=== PATIENT | female | born 1980 | race Caucasian/White ===

== ENCOUNTER 2016-10-29 22:35 | Outpatient (CLI) | payer OTHER, MEDICAID ==
[~2016-10-29] VITALS: Ht 160 cm; Wt 79.1 kg
[2016-10-29 23:45] VITALS: BP 117/71; PULSE 88
[2016-10-30] MEDS ORDERED: PRENATAL1 TA7 PO (00:26)
== END 2016-10-30 00:32 | disposition home or self-care (01) ==
LOC: LDRO 22:35
DX: Z03.71 Encounter for suspected problem with amniotic cavity and membrane ruled out (principal)

== ENCOUNTER 2016-11-07 10:13 | Inpatient (IN) | payer OTHER, MEDICAID ==
[~2016-11-07] VITALS: Ht 160 cm; Wt 80.5 kg
[2016-11-07] VITALS (27 sets, daily range): BP systolic 104–131; BP diastolic 56–91; PULSE 79–115; TEMP 97.7–97.9
[~2016-11-07 10:13] MED LIST: PRENATAL1 TA7 PO
[2016-11-07] MEDS ORDERED: PRENATAL 19 CH1 EACH PO (11:41)
[2016-11-07 11:45] LABS: BASO % 0.5 % (0.0-2.0); EOS # 0.1 (0.0-0.7); EOS % 0.7 % (0-4.0); GRAN # 5.5 (1.4-6.5); MEAN CELL VOLUME 86 fl (80.0-100.0); MEAN CORPUSCULAR HGB CONC 34 g/dl (33.0-37.0); MONO # 0.6 (0.1-0.6); MONO % 7.2 % (1.7-9.3); PLATELET COUNT 314 K/mm3 (130-400); RED BLOOD COUNT 3.76 M/mm3 (4.10-5.30); REDCELL DISTRIBUTION WIDTH-CV 13.9 % (11.5-14.5); WHITE BLOOD COUNT 8.1 K/mm3 (4.8-10.8)
[2016-11-07 11:47] LABS: HEMATOCRIT 32.5 % (37.0-47.0); MEAN CORPUSCULAR HEMOGLOBIN 29 pg (27.0-31.0)
[2016-11-07 19:48] LABS: HEMATOCRIT 30.8 % (37.0-47.0); HEMOGLOBIN 10.5 g/dl (12.5-16.0); MEAN CELL VOLUME 87 fl (80.0-100.0); MEAN CORPUSCULAR HEMOGLOBIN 30 pg (27.0-31.0); MEAN CORPUSCULAR HGB CONC 34 g/dl (33.0-37.0); MEAN PLATELET VOLUME 8.9 fl (7.4-10.4); PLATELET COUNT 285 K/mm3 (130-400); RED BLOOD COUNT 3.53 M/mm3 (4.10-5.30); REDCELL DISTRIBUTION WIDTH-CV 13.7 % (11.5-14.5)
[2016-11-08 00:30] VITALS: BP 114/72; PULSE 98; TEMP 97.9
[2016-11-08 04:15] VITALS: BP 112/45; PULSE 91; TEMP 97.5
[2016-11-08] MEDS ORDERED: PERCOCET 325 MG1 TA2 PO (07:21)
[2016-11-08] MEDS ORDERED: IBU600 MG PO (07:21)
[2016-11-08 07:48] VITALS: BP 107/94; PULSE 92; TEMP 97.7
[2016-11-08 07:50] LABS: HEMATOCRIT 26.9 % (37.0-47.0)
[2016-11-08 16:30] VITALS: BP 112/44; PULSE 105; TEMP 98.2
[2016-11-08 21:00] VITALS: BP 120/70; PULSE 80; TEMP 98.3
[2016-11-09 09:52] VITALS: BP 116/76; PULSE 102; TEMP 97.4
[2016-11-09 16:33] VITALS: BP 110/70; PULSE 103; TEMP 98.1
== END 2016-11-09 18:30 | disposition home or self-care (01) | DRG 767 ==
LOC: LDR 10:13 → OB 10:30
PROVIDERS: Obstetrics & Gynecology
PROC: 10E0XZZ Delivery of Products of Conception, External Approach (ICD-10-PCS; principal; 2016-11-07)
PROC: 10D17ZZ Extraction of Products of Conception, Retained, Via Natural or Artificial Opening (ICD-10-PCS; 2016-11-07)
DX: O34.211 Maternal care for low transverse scar from previous cesarean delivery (principal); O72.1 Other immediate postpartum hemorrhage; N85.8 Other specified noninflammatory disorders of uterus; O69.81X0 Labor and delivery complicated by cord around neck, without compression, not applicable or unspecified; O09.523 Supervision of elderly multigravida, third trimester; Z3A.39 39 weeks gestation of pregnancy; Z37.0 Single live birth
CPT/HCPCS: J0690; J2210; J2250; J2400; J2590; J2795; J7120

== ENCOUNTER → 2020-04-19 | Outpatient (CLI) | payer BC ==
[~2020-04-19] VITALS: Ht 160 cm; Wt 82.6 kg
[~2020-04-19] MED LIST changes: +IBU600 MG PO; +PERCOCET 325 MG1 TA2 PO; +PRENATAL 19 CH1 EACH PO
== END ==
LOC: SUN.CLI 15:50
DX: E66.9 Obesity, unspecified (principal)

== ENCOUNTER 2020-08-23 15:08 | Emergency (ER) | payer BC ==
[~2020-08-23] VITALS: Ht 160 cm; Wt 79.1 kg
[2020-08-23 15:13] VITALS: TEMP 97.3
[2020-08-23] MEDS ORDERED: MULTI-VITAMIN W1 TA2 PO (15:56)
[2020-08-23] MEDS ORDERED: FISH OIL 500 M1 EAC1 PO (15:57)
[2020-08-23] MEDS ORDERED: ESTARYLLA 35 MC1 TAB PO (15:57)
[2020-08-23 16:18] LABS: BASO # 0.1 (0.0-0.2); BASO % 0.4 % (0.0-2.0); EOS % 0.1 % (0-4.0); GRAN % 88.3 % (42.2-75.2); HEMATOCRIT 42.5 % (37.0-47.0); HEMOGLOBIN 14.6 g/dl (12.5-16.0); LYMPH # 1.1 (1.2-3.4); LYMPH % 7.9 % (20.0-51.0); MEAN CELL VOLUME 88 fl (80.0-100.0); MEAN CORPUSCULAR HEMOGLOBIN 30 pg (27.0-31.0); MEAN CORPUSCULAR HGB CONC 34 g/dl (33.0-37.0); MEAN PLATELET VOLUME 9.1 fl (7.4-10.4); MONO # 0.4 (0.1-0.6); MONO % 2.9 % (1.7-9.3); PLATELET COUNT 425 K/mm3 (130-400); RED BLOOD COUNT 4.85 M/mm3 (4.10-5.30); REDCELL DISTRIBUTION WIDTH-CV 11.8 % (11.5-14.5)
[2020-08-23 16:25] LABS: ALBUMIN 4.9 gm/dL (3.5-5.0); BILIRUBIN,TOTAL 0.6 mg/dL (0.0-1.0); CALCIUM 9.5 mg/dL (8.4-10.2); CREATININE, serum 0.87 (0.52-1.25); TOTAL PROTEIN 8.6 gm/dL (6.4-8.2)
[2020-08-23 17:11] LABS: COLLECTION METHOD CLEAN CATCH
[2020-08-23] MEDS ORDERED: NORCO 325 MG-51 TAB PO (17:34)
[2020-08-23] MEDS ORDERED: ZOFRAN 4MG T4 MG/TAB PO (17:34)
[2020-08-23 17:36] LABS: BUDDING YEAST Present /hpf; MUCOUS Present /lpf; PH 6 (5-8); SQUAMOUS EPITHELIAL 20-50 /hpf; URINE APPEARANCE Cloudy; URINE BACTERIA None Seen /hpf; URINE BILIRUBIN Negative (NEGATIVE); URINE BLOOD 3+ (NEGATIVE); URINE COLOR Yellow; URINE GLUCOSE Negative (NEGATIVE); URINE KETONE Trace (NEGATIVE); URINE LEUKOCYTE ESTERASE Trace (NEGATIVE); URINE NITRATE Negative (NEGATIVE); URINE PROTEIN(semi-quant) 1+ (NEGATIVE); URINE RBC >50 /hpf; URINE UROBILINOGEN Negative (NEGATIVE)
[2020-08-23] MEDS ORDERED: BACTRIM DS 8001 TAB PO (17:46)
[2020-08-23 17:54] VITALS: BP 125/65; PULSE 92
== END 2020-08-23 18:00 | disposition home or self-care (01) ==
LOC: COL.ER 15:08
PROVIDERS: Nurse Practitioner Primary Care
DX: N39.0 Urinary tract infection, site not specified (principal); N20.1 Calculus of ureter; Z87.442 Personal history of urinary calculi
CPT/HCPCS: J2405; J3010; J7030; Q9967

== ENCOUNTER 2022-11-12 20:40 | Observation (INO) | payer BC, MEDICAID ==
[~2022-11-12] VITALS: Ht 160 cm; Wt 75.5 kg
[~2022-11-12 20:40] MED LIST changes: +BACTRIM DS 8001 TAB PO; +ESTARYLLA 35 MC1 TAB PO; +FISH OIL 500 M1 EAC1 PO; +MULTI-VITAMIN W1 TA2 PO; +NORCO 325 MG-51 TAB PO; +ZOFRAN 4MG T4 MG/TAB PO
[2022-11-12 21:51] LABS: COLLECTION METHOD CLEAN CATCH
[2022-11-12 21:55] LABS: BASO # 0.1 K/mm3 (0.0-0.2); BASO % 0.5 % (0.0-2.0); EOS # 0.1 K/mm3 (0.0-0.7); EOS % 0.8 % (0.0-4.0); GRAN # 11.1 K/mm3 (1.4-6.5); GRAN % 77.8 % (42.2-75.2); HEMATOCRIT 39.7 % (37.0-47.0); HEMOGLOBIN 13.7 g/dl (12.5-16.0); LYMPH # 1.9 K/mm3 (1.2-3.4); LYMPH % 13.7 % (20.0-51.0); MEAN CELL VOLUME 87 fl (80.0-100.0); MEAN CORPUSCULAR HEMOGLOBIN 30 pg (27-31); MEAN CORPUSCULAR HGB CONC 35 g/dl (33.0-37.0); MEAN PLATELET VOLUME 8.8 fl (7.4-10.4); MONO % 6.8 % (1.7-9.3); PLATELET COUNT 379 K/mm3 (130-400); RED BLOOD COUNT 4.55 M/mm3 (4.10-5.30)
[2022-11-12 21:59] LABS: MUCOUS Present (NOT PRESENT); SQUAMOUS EPITHELIAL 0-2 /hpf (0-10); URINE BACTERIA Rare /hpf (NONE SEEN)
[2022-11-12 22:04] LABS: URINE APPEARANCE Clear (CLEAR/HAZY); URINE BLOOD 2+ (NEGATIVE); URINE COLOR Yellow (YELLOW); URINE GLUCOSE Negative (NEGATIVE); URINE KETONE Negative (NEGATIVE); URINE NITRATE Negative (NEGATIVE); URINE PROTEIN(semi-quant) Negative (NEGATIVE); URINE UROBILINOGEN 0.2 E.U/dL (0.2-1.0)
[2022-11-12 22:11] LABS: ALBUMIN 3.7 gm/dL (3.5-5.0); BILIRUBIN,TOTAL 0.4 mg/dL (0.2-1.2); C-REACTIVE PROTEIN 3.04 mg/dL (0.00-0.50); CALCIUM 9.2 mg/dL (8.4-10.2); CREATININE, serum 1.4 mg/dL (0.57-1.11); POTASSIUM 3.7 mmol/L (3.5-4.5); TOTAL PROTEIN 7.7 gm/dL (6.2-8.1)
[2022-11-13 08:18] VITALS: BP 121/63; PULSE 67; TEMP 98
--- NOTE | 2022-11-13 09:23 | NUR ---
PATIENT BROUGHT TO FLOOR. PATIENT ORIENTED TO ROOM. ASSESSMENT/INTAKE COMPLETE. NS RUNNING AT 125 IN LEFT AC. AWAITING ORDERS. PATIENT DENIES ANY FURTHER NEEDS. CALL LIGHT WITHIN REACH.
--- NOTE | 2022-11-13 10:14 | NUR ---
Initial visit; Patient using phone. Campus Executive Director left a card offering God's blessings and the availability of [facility] at our hospital.
--- NOTE | 2022-11-13 10:23 | NUR ---
PATIENT OFF OF FLOOR FOR SURGERY
--- NOTE | 2022-11-13 10:43 | NUR ---
SW met with the patient to discuss discharge plan. The patient lives in [place] with her , George ([phone]), and their children. She reports independence with ADLs and does not have any DME. The patient's PCP is Dr. Judy Carranza and she receives her medications from [facility]. The patient does not have a DPOA-HC and she was not interested in completing on at this time. The patient plans to return home with her family upon discharge. No additional needs at this time. *Discharge plan: home with family*
[2022-11-13] MEDS ORDERED: PYRIDIUM 100MG100 MG PO (11:50)
[2022-11-13 12:50] VITALS: BP 108/65; PULSE 67
[2022-11-13 16:28] VITALS: BP 124/76; PULSE 86; TEMP 97.7
== END 2022-11-13 16:30 | disposition home or self-care (01) ==
LOC: COL.ER 20:40 → SURG 11-13 00:36
PROVIDERS: Nurse Practitioner; ADMIT Urology
DX: N13.2 Hydronephrosis with renal and ureteral calculous obstruction (principal); Z28.310 Unvaccinated for COVID-19; Z28.9 Immunization not carried out for unspecified reason
CPT/HCPCS: C1769; G0378; J0690; J1170; J1885; J2270; J2405; J2704; J3010; J7030; Q9967